=== PATIENT | male | born 1995 | race Caucasian/White ===

== ENCOUNTER 2019-11-22 14:04 | Emergency (ER) | payer MEDICAID ==
[~2019-11-22] VITALS: Ht 175.3 cm; Wt 90.7 kg
[2019-11-22 14:49] VITALS: BP_SYST 139
[2019-11-22 15:49] VITALS: BP_SYST 139
== END 2019-11-22 15:46 | disposition home or self-care (01) ==
LOC: SED 14:04
DX: J32.9 Chronic sinusitis, unspecified (principal)
CPT/HCPCS: 99283